=== PATIENT | male | born 1980 | race Caucasian/White ===

== ENCOUNTER 2018-09-28 07:49 | Emergency (ER) | payer BC ==
[2018-09-28] MEDS ORDERED: NS 0.9% 1000 ML** 2,000 ML IV ONE (08:19)
[2018-09-28] MEDS ORDERED: Ondansetron INJ* 2 MG/ML VIAL IV ONE (08:20)
[2018-09-28] MEDS ORDERED: Ketorolac INJ* 30 MG/ML 1 ML VIAL IV PUSH ONE (08:20)
--- NOTE | 2018-09-28 08:29 | ED ---
Abdominal Pain/Male - HPI Summary HPI Summary: Patient is a 38 y/o male with constant lower abdominal pain beginning yesterday morning that he rates at 10/10 and states radiates to his perineum and scrotum. He notes nausea, chills, and fever 100.2 F last night. Denies vomiting, diarrhea , bloody stools, difficulty urinating, dysuria. Denies lateralization of the pain to right or left. States his abdominal pain worsens with position change from sitting to standing. Tried Pepto Bismol without relief of symptoms. Denies hx of abdominal surgeries. Smokes 1 and 1/2 PPD, denies alcohol use. - History of Current Complaint Chief Complaint: EDAbdPain Stated Complaint: "ABD PAIN/POS GI BLEED" PER PT Time Seen by Provider: 09/28/18 08:00 Hx Obtained From: Patient Onset/Duration: Sudden Onset Timing: Constant Severity Initially: Moderate Severity Currently: Severe Pain Intensity: 10 Pain Scale Used: 0-10 Numeric Location: Diffuse Radiates: Yes Radiates to: Other - Scrotum Character: Sharp Aggravating Factor(s): Movement Alleviating Factor(s): Nothing Associated Signs And Symptoms: Positive: Fever, Nausea. Negative: Chest Pain, Blood in Stool, Urinary Symptoms, Vomiting, Diarrhea - Allergies/Home Medications Allergies/Adverse Reactions: Allergies Allergy/AdvReac Type Severity Reaction Status Date / Time bee venom protein (honey bee) Allergy Unknown Verified 09/28/18 08:15 Reaction Details PMH/Surg Hx/FS Hx/Imm Hx Previously Healthy: No Endocrine/Hematology History: Denies: Hx Diabetes, Hx Thyroid Disease Cardiovascular History: Reports: Hx Hypertension, Other Cardiovascular Problems/ Disorders - "Weak heart" per patient. Cardiac cath performed. Respiratory History: Denies: Hx Asthma, Hx Chronic Obstructive Pulmonary Disease (COPD) GI History: Denies: Hx Ulcer - Surgical History Surgical History: Yes Surgery Procedure, Year, and Place: 2011 - [facility] REPAIR Infectious Disease History: No Infectious Disease History: Denies: Hx Clostridium Difficile, Hx Hepatitis, Hx Human Immunodeficiency Virus (HIV), Hx of Known/Suspected MRSA, Hx Shingles, Hx Tuberculosis, Hx Known/ Suspected VRE, Hx Known/Suspected VRSA, History Other Infectious Disease, Traveled Outside the [place] in Last 30 Days - Family History Known Family History: Positive: Cardiac Disease, Non-Contributory - Social History Alcohol Use: None Substance Use Type: Reports: None Smoking Status (MU): Heavy Every Day Tobacco Smoker Type: Cigarettes Amount Used/How Often: 1 and 1/2 PPD Length of Time of Smoking/Using Tobacco: 10+ YEARS Review of Systems Positive: Fever - 100.2 F, Chills Negative: Chest Pain Positive: Abdominal Pain - Low abdominal pain, Nausea. Negative: Vomiting, Diarrhea Negative: dysuria, frequency, hematuria, incontinence, pain All Other Systems Reviewed And Are Negative: Yes Physical Exam Triage Information Reviewed: Yes Vital Signs On Initial Exam: Initial Vitals Temp Pulse Resp BP Pulse Ox 98.6 F 113 22 152/107 98 09/28/18 07:52 09/28/18 07:52 09/28/18 07:52 09/28/18 07:52 09/28/18 07:52 Vital Signs Reviewed: Yes Appearance: Positive: Well-Appearing, Pain Distress Skin: Positive: Warm, Skin Color Reflects Adequate Perfusion, Dry Head/Face: Positive: Normal Head/Face Inspection Eyes: Positive: Normal, Conjunctiva Clear ENT: Positive: Other - Dry mucous membranes. Respiratory/Lung Sounds: Positive: Clear to Auscultation, Breath Sounds Present. Negative: Rales, Rhonchi, Wheezes Cardiovascular: Positive: RRR. Negative: Murmur, Rub Abdomen Description: Positive: Soft, Guarding - Voluntary. Negative: Nontender - Diffusely tender to palpation. Lower abdominal quadrants worse than upper., CVA Tenderness (R), CVA Tenderness (L), Distended, Hernia @, Peritoneal Signs Bowel Sounds: Positive: Present Male Genital Exam: Positive: Scrotum Tenderness (R), Scrotum Tenderness (L). Negative: Epididymal Tenderness, Erythema, Lesions Musculoskeletal: Positive: Normal, Strength/ROM Intact Neurological: Positive: Normal, Sensory/Motor Intact, Alert, Oriented to Person Place, Time Psychiatric: Positive: Normal Diagnostics - Vital Signs Vital Signs Temp Pulse Resp BP Pulse Ox 09/28/18 07:52 98.6 F 113 22 152/107 98 - Laboratory Lab Results: Laboratory Results - last 24 hr 09/28/18 09/28/18 09/28/18 08:32 08:32 08:37 WBC 16.7 H RBC 5.11 Hgb 16.2 Hct 47 MCV 92 MCH 32 H MCHC 35 RDW 14 Plt Count 276 MPV 7.8 Neut % (Auto) 73.2 Lymph % (Auto) 14.6 [place] % (Auto) 10.4 Eos % (Auto) 1.2 Baso % (Auto) 0.6 Absolute Neuts (auto) 12.2 H Absolute Lymphs (auto) 2.4 Absolute Monos (auto) 1.7 H Absolute Eos (auto) 0.2 Absolute Basos (auto) 0.1 Absolute Nucleated RBC 0.0 Nucleated RBC % 0.0 Sodium 137 Potassium 3.8 Chloride 105 Carbon Dioxide 24 Anion Gap 8 BUN 14 Creatinine 0.86 Est GFR ( Amer) 120.4 Est GFR (Non-Af Amer) 99.5 BUN/Creatinine Ratio 16.3 Glucose 118 H Calcium 9.5 Total Bilirubin 1.30 H AST 13 ALT 11 Alkaline Phosphatase 77 Total Protein 7.1 Albumin 4.5 Globulin 2.6 Albumin/Globulin Ratio 1.7 Lipase 14 Urine Color Yellow Urine Appearance Clear Urine pH 7.0 Ur Specific [place] 1.012 Urine Protein Negative Urine Ketones Trace A Urine Blood Negative Urine Nitrate Negative Urine Bilirubin Negative Urine Urobilinogen Negative Ur Leukocyte Esterase Negative Urine Glucose Negative Result Diagrams: 09/28/18 08:32 09/28/18 08:32 Lab Statement: Any lab studies that have been ordered have been reviewed, and results considered in the medical decision making process. - CT CT abd/pelvis CT Interpretation Completed By: Radiologist Summary of CT Findings: Nonspecific sigmoid thickening with interstitial stranding favors diverticulitis. Re-Evaluation - Re-Evaluation First re-eval Re-Evaluation Time: 11:45 Change: Improved Comment: Pain and nausea controlled Abdominal Pain Male Course/Dx - Course Course Of Treatment: 38 y/o male with constant diffuse abdominal pain accompanied by low grade fever and nausea. CT with nonspecific findings that favors diverticulitis. Pain and nausea controlled in the ED. Patient discharged to home with prescriptions for Augmentin and pain medication. Given work note as requested. Patient to f/u with PCP within 1 week and instructed to return with new or worsening symptoms. - Diagnoses Differential Diagnosis/HQI/PQRI: Appendicitis, Diverticulitis, Prostatitis, Ureteral Stone Provider Diagnoses: Diverticulitis large intestine w/o perforation or abscess w/o bleeding Discharge - Sign-Out/Discharge Documenting (check all that apply): Patient Departure Patient Received Moderate/Deep Sedation with Procedure: No - Discharge Plan Condition: Good Disposition: HOME Prescriptions: Amoxicillin/Clavulanate TAB* [Augmentin TAB 875*] 875 mg PO BID #28 tab oxyCODONE/Acetamin 5/325 MG* [Percocet 5/325 TAB*] 1 tab PO Q4H PRN #20 tab MDD 6 PRN Reason: Pain Patient Education Materials: Diverticulitis (ED) Forms: *Work Release Referrals: Hector Tubbs MD [Primary Care Provider] - 4 Days (if not improving ) Additional Instructions: Control pain with percocet as needed. As we discussed, expect a slow recovery. May continue diet as tolerated. Work note provided. Return with new or worsening symptoms. Follow up with your PCP in 2-3 days. - Billing Disposition and Condition Condition: GOOD Disposition: Home - Attestation Statements Document Initiated by Cj: Yes Documenting Scribe: HENRRY Kitchen Provider For Whom Cj is Documenting (Include Credential): Dr. Leonardo Bernabe Attestation: Ashanti Mason PA-S, scribed for Dr. Patterson on 09/29/18 at 0944. Scribe Documentation Reviewed: Yes Provider Attestation: The documentation as recorded by the Ashanti bernabe PA-S accurately reflects the service I personally performed and the decisions made by Dr. Leonardo elliott Status of Scribyoselin Document: Viewed
[2018-09-28 08:43] LABS: Hematocrit 47 % (42-52); Hemoglobin 16.2 g/dL (14.0-18.0); Mean Corpuscular HGB Conc 35 g/dL (31-36); Mean Corpuscular Hemoglobin 32 pg (27-31); Mean Corpuscular Volume 92 fL (80-94); Mean Platelet Volume 7.8 fL (7.4-10.4); Platelet Count 276 10^3/uL (150-450); Red Blood Count 5.11 10^6 /uL (4.18-5.48); Red Cell Distribution Width 14 % (10-15); White Blood Count 16.7 10^3/uL (3.5-10.8)
[2018-09-28 08:57] LABS: Urine Appearance Clear; Urine Bilirubin Negative (Negative); Urine Blood Negative (Negative); Urine Color Yellow; Urine Glucose Negative (Negative); Urine Ketones Trace (Negative); Urine Nitrite Negative (Negative); Urine Protein Negative (Negative); Urine Specific Gravity 1.012 (1.010-1.030); Urine Urobilinogen Negative (Negative)
[2018-09-28 08:59] LABS: Albumin 4.5 g/dL (3.2-5.2); Albumin/Globulin Ratio 1.7 (1-3); BUN/Creatinine Ratio 16.3 (8-20); Calcium 9.5 mg/dL (8.6-10.3); EGFR African American 120.4 (>60); EGFR Non-African American 99.5 (>60); Globulin 2.6 g/dL (2-4); Potassium 3.8 mmol/L (3.5-5.0); Total Bilirubin 1.3 mg/dL (0.2-1.0); Total Protein 7.1 g/dL (6.4-8.9)
[2018-09-28] MEDS ORDERED: Iohexol 300* (CONTRAST) 10 ML SDV IV ONE (09:03)
[2018-09-28 09:58] LABS: ABS Basophils 0.1 10^3/ul (0-0.2); ABS Eosinophils 0.2 10^3/ul (0-0.6); ABS Lymphocytes 2.4 10^3/ul (1.0-4.8); ABS Monocytes 1.7 10^3/ul (0-0.8); ABS Neutrophils 12.2 10^3/ul (1.5-7.7); Eosinophil % 1.2 %; Lymphocyte % 14.6 %
[2018-09-28 12:01] VITALS: BP 136/91
== END 2018-09-28 12:00 | disposition home or self-care (01) ==
LOC: MERGE 07:49 → ED 07:49
DX: K57.32 Diverticulitis of large intestine without perforation or abscess without bleeding (principal); R11.0 Nausea; R50.9 Fever, unspecified; Z91.030 Bee allergy status; F17.210 Nicotine dependence, cigarettes, uncomplicated
CPT/HCPCS: 36415; 74177; 80053; 81003; 83690; 85025; 96361; 96374; 96375; 99283; J1885; J2405; Q9967

== ENCOUNTER 2018-09-28 22:44 | Emergency (ER) | payer BC ==
[2018-09-28 22:50] VITALS: BP 105/80
== END 2018-09-29 01:01 | disposition left against medical advice (07) ==
LOC: ED 22:44
DX: R10.9 Unspecified abdominal pain (principal); Z53.21 Procedure and treatment not carried out due to patient leaving prior to being seen by health care provider